=== PATIENT | female | born 1990 | race African-American/Black ===

== ENCOUNTER 2018-08-26 18:29 | Emergency (ER) | payer OTHER ==
[2018-08-26 18:43] VITALS: BP 128/78; PULSE 109; TEMP 99.1; BMI 38.4
[2018-08-26] MEDS ORDERED: ACETAMINOPHEN 500 MG TABLET (FP) PO ONE (18:43)
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
[2018-08-26] MEDS ORDERED: ACETAMINOPHEN 500 MG TABLET (FP) ONE (20:20)
== END 2018-08-26 20:58 | disposition home or self-care (01) ==
LOC: JERFT 18:29
DX: R51 Headache (principal); V49.50XA Passenger injured in collision with unspecified motor vehicles in traffic accident, initial encounter; Y92.414 Local residential or business street as the place of occurrence of the external cause; Y99.8 Other external cause status; Y93.89 Activity, other specified
CPT/HCPCS: 99281-25